=== PATIENT | female | born 1980 | race Caucasian/White ===

== ENCOUNTER 2018-07-15 15:50 | Emergency (ER) | payer BC, MEDICAID ==
[~2018-07-15] VITALS: Ht 157.5 cm; Wt 68.9 kg
[2018-07-15 16:10] VITALS: Ht 157.5 cm; Wt 68.9 kg
[2018-07-15 17:45] VITALS: BP 99/63
== END 2018-07-15 17:45 | disposition home or self-care (01) ==
LOC: ED 15:50
DX: J02.9 Acute pharyngitis, unspecified (principal)
CPT/HCPCS: 87804; J1885